=== PATIENT | male | born 1960 | race Two or more races ===

== ENCOUNTER 2024-02-25 12:29 | Emergency (ER) | payer OTHER, BC ==
[~2024-02-25] VITALS: Ht 175.3 cm; Wt 74.8 kg
[2024-02-25] MEDS ORDERED: ATORVASTATIN CA20 MG (12:39)
[2024-02-25] MEDS ORDERED: KETO10TA2 PO (13:20)
[2024-02-25] MEDS ORDERED: METHYLPREDNISOLONE SOD SUCC 40 MG VIAL IM ONE (13:30)
[2024-02-25] MEDS ORDERED: KETOROLAC TROMETHAMINE 60 MG VIAL IM ONE ×2 (13:30→13:54)
[2024-02-25] MEDS ORDERED: METHYLPREDNISOLONE SOD SUCC 125 MG VIAL ONE (13:55)
== END 2024-02-25 14:18 | disposition home or self-care (01) ==
LOC: ER 12:31
DX: M25.59 Pain in other specified joint (principal); M10.9 Gout, unspecified
CPT/HCPCS: 96372; 99282; J1885